=== PATIENT | female | born 1940 | race Caucasian/White ===

== ENCOUNTER 2016-07-08 18:29 | Inpatient (IN) | payer OTHER, MEDICAID ==
[~2016-07-08] VITALS: Ht 165.1 cm; Wt 88.0 kg
[2016-07-08 18:29] VITALS: BP 93/41; PULSE 87; RESP 18; TEMP 99.6; O2SAT 97
[~2016-07-08 18:29] MED LIST: ALBU2.5V7 INH; ALEN70TA3 GT; AMI200 GT; ATII2 IM; BIMA2.5D5 OP; CALC-939 GT; COLL100 GT; DULR10 RC; IPRA0.2S6 INH; IPRA3AMP9 INH; LACTIN GT; LEVE500T13 GT; LEVO25TA7 GT; MAGN400O4 GT; METO25TA6 GT; NA P118E RC; OMEP-130 GT; PATANOL OP; PRO40 GT; PROSTAT GT; TIMO5DRO4 OP; TYLL650 GT
[2016-07-08] MEDS ORDERED: NS 1000 ML BAG IV ONE (18:45)
[2016-07-08 19:09] LABS: BASOPHILS # (AUTO) 0.1 K/uL (0.0-0.2); BASOPHILS % (AUTO) 0.8 % (0.0-2.0); EOSINOPHILS # (AUTO) 0.9 K/uL (0.0-0.4); HEMATOCRIT 25.6 % (36-48); HEMOGLOBIN 8.4 g/dL (12.0-16.0); LYMPHOCYTES # (AUTO) 1.1 K/uL (1.0-5.5); LYMPHOCYTES % (AUTO) 10.3 % (20.5-51.5); MEAN CORPUSCULAR HEMOGLOBIN 28 pg (27-31); MEAN CORPUSCULAR HGB CONC 33 % (32-36); MEAN CORPUSCULAR VOLUME 85 fL (79.0-98.0); MONOCYTES # (AUTO) 0.6 K/uL (0.0-1.0); MONOCYTES % (AUTO) 6.1 % (1.7-9.3); NEUTROPHILS # (AUTO) 7.8 K/uL (1.8-7.7); NEUTROPHILS % (AUTO) 73.8 % (40.0-70.0); PLATELET COUNT (AUTO) 173 K/uL (130-430); RED BLOOD CELL COUNT(AUTO) 3.02 MIL/uL (4.2-6.2); RED CELL DISTRIBUTION WIDTH 18.6 % (9.0-15.0); WHITE BLOOD COUNT (AUTO) 10.5 K/uL (4.8-10.8)
[2016-07-08 19:21] LABS: BILIRUBIN,URINE NEGATIVE (NEGATIVE); BLOOD, URINE NEGATIVE (NEGATIVE); CLARITY/URINE HAZY (CLEAR); COLOR,URINE YELLOW (YELLOW); GLUCOSE,URINE NEGATIVE (NEGATIVE); KETONES,URINE NEGATIVE (NEGATIVE); LEUKOCYTE ESTERASE ,URINE NEGATIVE (NEGATIVE); NITRITE, URINE NEGATIVE (NEGATIVE); PROTEIN URINE NEGATIVE (NEGATIVE); UROBILINOGEN,URINE 0.2 (0.2-1.0)
[2016-07-08] MEDS ORDERED: IPRA3AMP9 INH (19:38)
[2016-07-08] MEDS ORDERED: FENT1PAT4 TD (19:38)
[2016-07-08] MEDS ORDERED: METO25TA3 GT (19:38)
[2016-07-08 19:40] LABS: ANION GAP 8 (5-15); CALCIUM 9.5 mg/dL (8.4-11.0); CHLORIDE 97 mmol/L (98-107); CREATININE 0.89 mg/dL (0.55-1.30); GLUCOSE 191 mg/dL (70-99); POTASSIUM 5.2 mmol/L (3.5-5.1); SODIUM SERUM 132 mmol/L (136-145); UREA NITROGEN, BLOOD 37 mg/dL (8-21)
[2016-07-08 19:45] LABS: ALANINE AMINOTRANSFERASE 44 U/L (12-78); ALBUMIN 2.6 g/dL (3.4-4.8); ASPARTATE AMINOTRANSFERASE 51 U/L (10-37); TOTAL BILIRUBIN 0.8 mg/dL (0.0-1.0); TOTAL PROTEIN, SERUM 7.4 g/dL (6.4-8.3)
[2016-07-08 19:49] LABS: BACTERIA,URINE FEW /HPF (None Seen); MUCUS,URINE 1+ /LPF (None Seen); RBC,URINE NONE SEEN /HPF (0-3); WBC,URINE 0-3 /HPF (0-3)
[2016-07-08] MEDS ORDERED: VANCOMYCIN HCL 500 MG in NS 100 ML IV ONE (20:45)
[2016-07-08] MEDS ORDERED: PIPERACILLIN/TAZO 3.375 GM in NS 50 ML IV ONE (20:45)
[2016-07-08] MEDS ORDERED: PIPERACILLIN/TAZOBACTAM 3.375 GM/VIAL (ZOSYN) IV ONE (20:53)
[2016-07-08] MEDS ORDERED: VANCOMYCIN HCL 1000 MG/VIAL IV ONE (20:53)
[2016-07-08 21:35] VITALS: BP 93/56; PULSE 84; RESP 18; TEMP 98.9; O2SAT 98
[2016-07-08 22:00] VITALS: BP 93/50; PULSE 84; RESP 18; O2SAT 98
[2016-07-08] MEDS ORDERED: ACETAMINOPHEN 650 MG/20.3 ML UDC GT PRN (22:00)
[2016-07-08] MEDS ORDERED: MILK OF MAGNESIA 30 ML UDC PO PRN (22:00)
[2016-07-08] MEDS ORDERED: IPRATROPIUM/ALBUTEROL SULFATE 3 ML AMPUL.NEB INH PRN ×2 (22:00)
[2016-07-08] MEDS ORDERED: ALENDRONATE SODIUM 70 MG TABLET (FOSAMAX) GT SCH ×2 (22:00)
[2016-07-08] MEDS ORDERED: IPRATROPIUM BROM 0.5 MG/2.5 ML VIAL.NEB (ATROVENT) INH PRN (22:00)
[2016-07-08] MEDS ORDERED: BISACODYL 10 MG/SUPPOSITORY RC PRN (22:00)
[2016-07-08] MEDS ORDERED: MILK OF MAGNESIA 30 ML UDC GT PRN (22:00)
[2016-07-08] MEDS ORDERED: LORazepam 2 MG/ML VIAL IM PRN (22:00)
[2016-07-08] MEDS ORDERED: NA PHOS,M-B/NA PHOS,DI-BA 118 ML (FLEET ENEMA) RC PRN (22:00)
[2016-07-08 22:15] LABS: BLOOD GAS PH 7.428 (7.350-7.450)
[2016-07-08] MEDS ORDERED: LevALBUTEROL HCL 1.25 MG/0.5 ML *CONC.* VIAL.NEB (XOPENEX CONC.) INH PRN (22:15)
[2016-07-08] MEDS ORDERED: LORazepam 2 MG/ML VIAL IVP PRN (22:15)
[2016-07-08 22:16] LABS: ABG TOTAL HEMOGLOBIN 9.1 G/dL (12.0-18.0); BLOOD GAS BASE EXCESS -0.1 mmol/L (-3.0-3.0); BLOOD GAS COHb% 0.2 % (0.5-1.5); BLOOD GAS HHB 1.1 % (0.0-6.0); BLOOD O2Hb% 98.1 % (94.0-97.0)
[2016-07-08 22:41] LABS: INR 1.2 (0.8-1.2); PROTHROMBIN TIME 12.5 SECS (9.5-12.5)
[2016-07-08 23:00] VITALS: BP 90/52; PULSE 80; RESP 16; O2SAT 100
[2016-07-08] MEDS: D5/0.45 NS 1,000 ML IV SCH (23:36)
[2016-07-08 23:40] VITALS: BP_SYST 106; BP_SYST 91; BP_DIAS 38; BP_DIAS 55; PULSE 78
[2016-07-09] VITALS (34 sets, daily range): BP systolic 92–158; BP diastolic 40–79; PULSE 78–115; RESP 16–36; TEMP 97.9–99.2; O2SAT 94–99; Ht 165.1 cm; Wt 88.0 kg
[2016-07-09] MEDS ORDERED: IPRATROPIUM BROM 0.5 MG/2.5 ML VIAL.NEB (ATROVENT) INH SCH (01:00)
[2016-07-09] MEDS ORDERED: ALBUTEROL SULFATE 0.083% 2.5 MG/3 ML VIAL.NEB INH ONE (02:14)
[2016-07-09] MEDS ORDERED: IPRATROPIUM BROM 0.5 MG/2.5 ML VIAL.NEB (ATROVENT) INH ONE (02:14)
[2016-07-09] MEDS ORDERED: PIPERACILLIN/TAZOBACTAM 3.375 GM/VIAL (ZOSYN) IV ONE (04:45)
[2016-07-09] MEDS: PIPERACILLIN/TAZO 3.375/DEX-IS 50 ML IV SCH ×4 (04:47→21:40)
[2016-07-09 06:51] LABS: ALANINE AMINOTRANSFERASE 45 U/L (12-78); ALBUMIN 2.3 g/dL (3.4-4.8); ANION GAP 11 (5-15); ASPARTATE AMINOTRANSFERASE 86 U/L (10-37); CALCIUM 9.1 mg/dL (8.4-11.0); CHLORIDE 100 mmol/L (98-107); CREATININE 0.84 mg/dL (0.55-1.30); GLUCOSE 139 mg/dL (70-99); POTASSIUM 5.2 mmol/L (3.5-5.1); SODIUM SERUM 135 mmol/L (136-145); TOTAL BILIRUBIN 0.8 mg/dL (0.0-1.0); TOTAL PROTEIN, SERUM 6.9 g/dL (6.4-8.3); UREA NITROGEN, BLOOD 36 mg/dL (8-21)
[2016-07-09] MEDS: LEVOTHYROXINE SODIUM 0.025 MG TABLET GT SCH (08:06)
[2016-07-09] MEDS: DOCUSATE SODIUM 100 MG/10 ML UDC GT SCH (08:06)
[2016-07-09] MEDS: levETIRAcetam 500 MG TABLET GT SCH ×2 (08:07→21:36)
[2016-07-09] MEDS: PANTOPRAZOLE GRANULES PACKET 40 MG GT SCH (08:07)
[2016-07-09] MEDS: AMIODARONE HCL 200 MG TABLET GT SCH (08:08)
[2016-07-09] MEDS: TIMOLOL MALEATE 0.5% OPHTHALMIC DROPS 5 ML OP SCH ×2 (08:12→21:42)
[2016-07-09] MEDS: CALCIUM CARBONATE/VITAMIN D3 1 TAB TABLET GT SCH (08:12)
[2016-07-09] MEDS ORDERED: METOPROLOL TARTRATE 25 MG TABLET GT SCH (09:00)
[2016-07-09] MEDS ORDERED: fentaNYL 25 MCG/HR PATCH TD SCH (09:00)
[2016-07-09] MEDS: VANCOMYCIN HCL 1,000 MG in NS 250 ML IV SCH ×2 (10:46→21:41)
[2016-07-09] MEDS: METOPROLOL TARTRATE 25 MG TABLET PO SCH ×2 (14:48→21:37)
[2016-07-09 14:50] LABS: BASOPHILS # (AUTO) 0.1 K/uL (0.0-0.2); BASOPHILS % (AUTO) 0.5 % (0.0-2.0); EOSINOPHILS # (AUTO) 0.8 K/uL (0.0-0.4); EOSINOPHILS % (AUTO) 7.8 % (0.0-4.0); HEMATOCRIT 24.8 % (36-48); LYMPHOCYTES # (AUTO) 1.2 K/uL (1.0-5.5); LYMPHOCYTES % (AUTO) 11.8 % (20.5-51.5); MEAN CORPUSCULAR HEMOGLOBIN 28 pg (27-31); MEAN CORPUSCULAR HGB CONC 33 % (32-36); MEAN CORPUSCULAR VOLUME 86 fL (79.0-98.0); MONOCYTES # (AUTO) 0.8 K/uL (0.0-1.0); MONOCYTES % (AUTO) 8.1 % (1.7-9.3); NEUTROPHILS # (AUTO) 7.1 K/uL (1.8-7.7); NEUTROPHILS % (AUTO) 71.8 % (40.0-70.0); PLATELET COUNT (AUTO) 166 K/uL (130-430); RED BLOOD CELL COUNT(AUTO) 2.88 MIL/uL (4.2-6.2)
[2016-07-09] MEDS: D5/0.45 NS 1,000 ML IV SCH (14:55)
[2016-07-09] MEDS: LACTOBACILLUS RHAMNOSUS GG 1 CAP CAPSULE PO SCH (21:38)
[2016-07-09] MEDS: LATANOPROST 2.5 ML DROPS (XALATAN) OP SCH (21:38)
[2016-07-10] VITALS (35 sets, daily range): BP systolic 104–156; BP diastolic 34–62; PULSE 83–124; RESP 16–26; TEMP 97.1–98.9; O2SAT 94–98
[2016-07-10] MEDS: LevALBUTEROL HCL 1.25 MG/0.5 ML *CONC.* VIAL.NEB (XOPENEX CONC.) INH SCH ×4 (00:16→21:45)
[2016-07-10] MEDS: PIPERACILLIN/TAZO 3.375/DEX-IS 50 ML IV SCH ×4 (05:00→20:04)
[2016-07-10] MEDS: METOPROLOL TARTRATE 25 MG TABLET PO SCH ×2 (06:33→14:22)
[2016-07-10 07:10] LABS: ANION GAP 13 (5-15); CALCIUM 8.6 mg/dL (8.4-11.0); CHLORIDE 99 mmol/L (98-107); CREATININE 0.97 mg/dL (0.55-1.30); GLUCOSE 166 mg/dL (70-99); POTASSIUM 4.5 mmol/L (3.5-5.1); SODIUM SERUM 133 mmol/L (136-145); UREA NITROGEN, BLOOD 40 mg/dL (8-21)
[2016-07-10 07:17] LABS: BASOPHILS % (AUTO) 0.2 % (0.0-2.0); EOSINOPHILS # (AUTO) 0.4 K/uL (0.0-0.4); EOSINOPHILS % (AUTO) 4.4 % (0.0-4.0); HEMATOCRIT 23.8 % (36-48); HEMOGLOBIN 7.7 g/dL (12.0-16.0); LYMPHOCYTES # (AUTO) 1.5 K/uL (1.0-5.5); LYMPHOCYTES % (AUTO) 15.6 % (20.5-51.5); MEAN CORPUSCULAR HEMOGLOBIN 27 pg (27-31); MEAN CORPUSCULAR HGB CONC 32 % (32-36); MEAN CORPUSCULAR VOLUME 85 fL (79.0-98.0); MONOCYTES # (AUTO) 1.1 K/uL (0.0-1.0); NEUTROPHILS # (AUTO) 6.6 K/uL (1.8-7.7); NEUTROPHILS % (AUTO) 68.8 % (40.0-70.0); PLATELET COUNT (AUTO) 124 K/uL (130-430); RED BLOOD CELL COUNT(AUTO) 2.81 MIL/uL (4.2-6.2); RED CELL DISTRIBUTION WIDTH 18.4 % (9.0-15.0); WHITE BLOOD COUNT (AUTO) 9.6 K/uL (4.8-10.8)
[2016-07-10] MEDS: D5/0.45 NS 1,000 ML IV SCH ×3 (07:35→20:02)
[2016-07-10] MEDS: DOCUSATE SODIUM 100 MG/10 ML UDC GT SCH (09:00)
[2016-07-10] MEDS: VANCOMYCIN HCL 1,000 MG in NS 250 ML IV SCH (09:08)
[2016-07-10] MEDS: LACTOBACILLUS RHAMNOSUS GG 1 CAP CAPSULE PO SCH ×2 (09:09→20:04)
[2016-07-10] MEDS: PANTOPRAZOLE GRANULES PACKET 40 MG GT SCH (09:09)
[2016-07-10] MEDS: AMIODARONE HCL 200 MG TABLET GT SCH (09:09)
[2016-07-10] MEDS: levETIRAcetam 500 MG TABLET GT SCH ×2 (09:09→20:04)
[2016-07-10] MEDS: TIMOLOL MALEATE 0.5% OPHTHALMIC DROPS 5 ML OP SCH ×2 (09:10→20:06)
[2016-07-10] MEDS: LEVOTHYROXINE SODIUM 0.025 MG TABLET GT SCH (09:10)
[2016-07-10] MEDS: CALCIUM CARBONATE/VITAMIN D3 1 TAB TABLET GT SCH (09:12)
[2016-07-10] MEDS ORDERED: COMMUNICATION ORDER XX ONE (15:45)
[2016-07-10] MEDS ORDERED: HYDROmorphone 1 MG INJ. 1 MG/ML AMPUL IVP PRN (18:00)
[2016-07-10] MEDS ORDERED: HYDROmorphone 1 MG INJ. 1 MG/ML AMPUL ONE (18:20)
[2016-07-10] MEDS: LATANOPROST 2.5 ML DROPS (XALATAN) OP SCH (20:05)
[2016-07-10] MEDS: METOPROLOL TARTRATE 25 MG TABLET GT SCH (21:38)
[2016-07-11] VITALS (29 sets, daily range): BP systolic 90–138; BP diastolic 32–71; PULSE 78–145; RESP 15–25; TEMP 97.5–99.2; O2SAT 92–98
[2016-07-11] MEDS: LevALBUTEROL HCL 1.25 MG/0.5 ML *CONC.* VIAL.NEB (XOPENEX CONC.) INH SCH ×4 (02:58→20:01)
[2016-07-11] MEDS: PIPERACILLIN/TAZO 3.375/DEX-IS 50 ML IV SCH ×4 (03:15→21:58)
[2016-07-11] MEDS: METOPROLOL TARTRATE 25 MG TABLET GT SCH ×3 (05:44→22:00)
[2016-07-11] MEDS: D5/0.45 NS 1,000 ML IV SCH ×2 (05:45→20:54)
[2016-07-11 07:11] LABS: BASOPHILS % (AUTO) 0.1 % (0.0-2.0); EOSINOPHILS # (AUTO) 0.3 K/uL (0.0-0.4); EOSINOPHILS % (AUTO) 2.2 % (0.0-4.0); HEMATOCRIT 30.8 % (36-48); HEMOGLOBIN 10.2 g/dL (12.0-16.0); LYMPHOCYTES # (AUTO) 1.7 K/uL (1.0-5.5); LYMPHOCYTES % (AUTO) 13.1 % (20.5-51.5); MEAN CORPUSCULAR HEMOGLOBIN 28 pg (27-31); MEAN CORPUSCULAR HGB CONC 33 % (32-36); MEAN CORPUSCULAR VOLUME 84 fL (79.0-98.0); MONOCYTES # (AUTO) 1.4 K/uL (0.0-1.0); MONOCYTES % (AUTO) 10.7 % (1.7-9.3); NEUTROPHILS # (AUTO) 9.8 K/uL (1.8-7.7); NEUTROPHILS % (AUTO) 73.9 % (40.0-70.0); PLATELET COUNT (AUTO) 124 K/uL (130-430); RED BLOOD CELL COUNT(AUTO) 3.67 MIL/uL (4.2-6.2); RED CELL DISTRIBUTION WIDTH 17.8 % (9.0-15.0); WHITE BLOOD COUNT (AUTO) 13.2 K/uL (4.8-10.8)
[2016-07-11 07:22] LABS: ANION GAP 12 (5-15); CALCIUM 8.2 mg/dL (8.4-11.0); CHLORIDE 98 mmol/L (98-107); CREATININE 0.85 mg/dL (0.55-1.30); GLUCOSE 220 mg/dL (70-99); POTASSIUM 3.9 mmol/L (3.5-5.1); SODIUM SERUM 131 mmol/L (136-145); UREA NITROGEN, BLOOD 38 mg/dL (8-21)
[2016-07-11] MEDS: LACTOBACILLUS RHAMNOSUS GG 1 CAP CAPSULE PO SCH ×2 (09:19→21:58)
[2016-07-11] MEDS: levETIRAcetam 500 MG TABLET GT SCH ×2 (09:20→21:58)
[2016-07-11] MEDS: AMIODARONE HCL 200 MG TABLET GT SCH (09:21)
[2016-07-11] MEDS: LEVOTHYROXINE SODIUM 0.025 MG TABLET GT SCH (09:21)
[2016-07-11] MEDS: PANTOPRAZOLE GRANULES PACKET 40 MG GT SCH (09:21)
[2016-07-11] MEDS: DOCUSATE SODIUM 100 MG/10 ML UDC GT SCH (09:23)
[2016-07-11] MEDS: VANCOMYCIN HCL 1,000 MG in NS 250 ML IV SCH ×5 (09:23→22:00)
[2016-07-11] MEDS: CALCIUM CARBONATE/VITAMIN D3 1 TAB TABLET GT SCH (09:26)
[2016-07-11] MEDS: TIMOLOL MALEATE 0.5% OPHTHALMIC DROPS 5 ML OP SCH ×2 (09:30→22:01)
[2016-07-11] MEDS ORDERED: ONDANSETRON HCL 4 MG/2 ML VIAL IVP PRN (11:15)
[2016-07-11] MEDS ORDERED: FUROSEMIDE 20 MG/2 ML VIAL IVP ONE (11:45)
[2016-07-11] MEDS ORDERED: MORPHINE 2 MG/ML INJ. SYRINGE IVP PRN (12:15)
[2016-07-11] MEDS ORDERED: LORazepam 2 MG/ML VIAL IVP PRN (12:15)
[2016-07-11] MEDS ORDERED: SODIUM BICARBONATE 8.4% VIAL 50 MEQ/50 ML VIAL INJ ONE (12:15)
[2016-07-11] MEDS: NACL 0.9% 1,000 ML IV SCH ×2 (12:26→21:59)
[2016-07-11 13:00] LABS: BLOOD GAS PH 7.414 (7.350-7.450)
[2016-07-11 13:02] LABS: ABG TOTAL HEMOGLOBIN 12.2 G/dL (12.0-18.0); BLOOD GAS BASE EXCESS -7.7 mmol/L (-3.0-3.0); BLOOD GAS COHb% 0.4 % (0.5-1.5); BLOOD GAS HHB 5.3 % (0.0-6.0); BLOOD O2Hb% 93.9 % (94.0-97.0)
[2016-07-11] MEDS ORDERED: DILTIAZEM HCL 25 MG/5 ML VIAL IVP ONE (15:00)
[2016-07-11] MEDS ORDERED: DILTIAZEM HCL 125 MG in D5W 100 ML IV SCH (20:00)
[2016-07-11] MEDS: LATANOPROST 2.5 ML DROPS (XALATAN) OP SCH (22:00)
[2016-07-12] VITALS (35 sets, daily range): BP systolic 90–134; BP diastolic 36–72; PULSE 74–123; RESP 16–22; TEMP 97–98.9; O2SAT 93–97
[2016-07-12] MEDS ORDERED: NS 250 ML IV ONE (00:15)
[2016-07-12] MEDS: LevALBUTEROL HCL 1.25 MG/0.5 ML *CONC.* VIAL.NEB (XOPENEX CONC.) INH SCH ×4 (01:21→19:52)
[2016-07-12] MEDS: D5/0.45 NS 1,000 ML IV SCH ×3 (02:00→22:00)
[2016-07-12] MEDS: PIPERACILLIN/TAZO 3.375/DEX-IS 50 ML IV SCH ×4 (02:47→20:44)
[2016-07-12] MEDS: NACL 0.9% 1,000 ML IV SCH ×2 (06:40→20:45)
[2016-07-12] MEDS: METOPROLOL TARTRATE 25 MG TABLET GT SCH ×3 (06:41→23:02)
[2016-07-12 06:55] LABS: HEMATOCRIT 33.6 % (36-48); HEMOGLOBIN 11.1 g/dL (12.0-16.0); MEAN CORPUSCULAR HEMOGLOBIN 28 pg (27-31); MEAN CORPUSCULAR HGB CONC 33 % (32-36); MEAN CORPUSCULAR VOLUME 85 fL (79.0-98.0); PLATELET COUNT (AUTO) 107 K/uL (130-430); RED BLOOD CELL COUNT(AUTO) 3.97 MIL/uL (4.2-6.2); RED CELL DISTRIBUTION WIDTH 18.5 % (9.0-15.0); WHITE BLOOD COUNT (AUTO) 14.1 K/uL (4.8-10.8)
[2016-07-12 07:04] LABS: ALANINE AMINOTRANSFERASE 44 U/L (12-78); ALBUMIN 1.7 g/dL (3.4-4.8); ANION GAP 11 (5-15); ASPARTATE AMINOTRANSFERASE 240 U/L (10-37); CALCIUM 7.6 mg/dL (8.4-11.0); CHLORIDE 103 mmol/L (98-107); CREATININE 0.78 mg/dL (0.55-1.30); GLUCOSE 172 mg/dL (70-99); POTASSIUM 3.7 mmol/L (3.5-5.1); SODIUM SERUM 136 mmol/L (136-145); TOTAL BILIRUBIN 0.9 mg/dL (0.0-1.0); TOTAL PROTEIN, SERUM 5.8 g/dL (6.4-8.3); UREA NITROGEN, BLOOD 43 mg/dL (8-21)
[2016-07-12] MEDS ORDERED: fentaNYL 50 MCG/HR PATCH TD SCH (09:00)
[2016-07-12] MEDS: TIMOLOL MALEATE 0.5% OPHTHALMIC DROPS 5 ML OP SCH ×2 (09:20→20:45)
[2016-07-12] MEDS: DOCUSATE SODIUM 100 MG/10 ML UDC GT SCH (09:20)
[2016-07-12] MEDS: CALCIUM CARBONATE/VITAMIN D3 1 TAB TABLET GT SCH (09:20)
[2016-07-12] MEDS: AMIODARONE HCL 200 MG TABLET GT SCH (09:21)
[2016-07-12] MEDS: LACTOBACILLUS RHAMNOSUS GG 1 CAP CAPSULE PO SCH ×2 (09:21→20:45)
[2016-07-12] MEDS: LEVOTHYROXINE SODIUM 0.025 MG TABLET GT SCH (09:21)
[2016-07-12] MEDS: PANTOPRAZOLE GRANULES PACKET 40 MG GT SCH (09:21)
[2016-07-12] MEDS: levETIRAcetam 500 MG TABLET GT SCH ×2 (09:22→20:45)
[2016-07-12] MEDS: VANCOMYCIN HCL 1,250 MG in NS 250 ML IV SCH (10:18)
[2016-07-12 11:22] LABS: ABG TOTAL HEMOGLOBIN 12.6 G/dL (12.0-18.0); BLOOD GAS BASE EXCESS -3.8 mmol/L (-3.0-3.0); BLOOD GAS PH 7.396 (7.350-7.450); BLOOD O2Hb% 96.7 % (94.0-97.0)
[2016-07-12 11:23] LABS: BLOOD GAS COHb% 0.3 % (0.5-1.5); BLOOD GAS HHB 2.4 % (0.0-6.0)
[2016-07-12 11:46] LABS: ATYPICAL LYMPHOCYTES % 5 % (0-0); BAND % (MANUAL) 16 % (0-6); BASOPHILS % (MANUAL) 0 % (0-2); EOSINOPHILS % (MANUAL) 1 % (0-7); LYMPHOCYTES % (MANUAL) 7 % (20-46); MONOCYTES % (MANUAL) 10 % (0-11)
[2016-07-12 11:47] LABS: METAMYELOCYTES % 1 % (0-0)
[2016-07-12] MEDS ORDERED: FUROSEMIDE 20 MG/2 ML VIAL IVP ONE (13:15)
[2016-07-12] MEDS: LATANOPROST 2.5 ML DROPS (XALATAN) OP SCH (20:46)
[2016-07-13] VITALS (24 sets, daily range): BP systolic 0–173; BP diastolic 0–92; PULSE 0–138; RESP 0–24; TEMP 97–100.5; O2SAT 0–98
[2016-07-13] MEDS: LevALBUTEROL HCL 1.25 MG/0.5 ML *CONC.* VIAL.NEB (XOPENEX CONC.) INH SCH ×3 (01:10→13:31)
[2016-07-13] MEDS: PIPERACILLIN/TAZO 3.375/DEX-IS 50 ML IV SCH (02:19)
[2016-07-13] MEDS: METOPROLOL TARTRATE 25 MG TABLET GT SCH ×2 (06:00→14:16)
[2016-07-13] MEDS: NACL 0.9% 1,000 ML IV SCH ×2 (06:01→11:24)
[2016-07-13 06:49] LABS: ANION GAP 12 (5-15); CHLORIDE 104 mmol/L (98-107); CREATININE 1.15 mg/dL (0.55-1.30); GLUCOSE 180 mg/dL (70-99); POTASSIUM 3.6 mmol/L (3.5-5.1); SODIUM SERUM 136 mmol/L (136-145); UREA NITROGEN, BLOOD 50 mg/dL (8-21)
[2016-07-13 06:50] LABS: BASOPHILS % (AUTO) 0.1 % (0.0-2.0); EOSINOPHILS # (AUTO) 0.5 K/uL (0.0-0.4); EOSINOPHILS % (AUTO) 3.5 % (0.0-4.0); HEMATOCRIT 34.2 % (36-48); LYMPHOCYTES # (AUTO) 1.7 K/uL (1.0-5.5); LYMPHOCYTES % (AUTO) 13.4 % (20.5-51.5); MEAN CORPUSCULAR HEMOGLOBIN 28 pg (27-31); MEAN CORPUSCULAR HGB CONC 32 % (32-36); MEAN CORPUSCULAR VOLUME 86 fL (79.0-98.0); MONOCYTES # (AUTO) 1.4 K/uL (0.0-1.0); MONOCYTES % (AUTO) 10.4 % (1.7-9.3); NEUTROPHILS # (AUTO) 9.4 K/uL (1.8-7.7); NEUTROPHILS % (AUTO) 72.6 % (40.0-70.0); PLATELET COUNT (AUTO) 102 K/uL (130-430); RED BLOOD CELL COUNT(AUTO) 3.99 MIL/uL (4.2-6.2); RED CELL DISTRIBUTION WIDTH 18.9 % (9.0-15.0)
[2016-07-13] MEDS: D5/0.45 NS 1,000 ML IV SCH (08:00)
[2016-07-13] MEDS ORDERED: CEFTAZIDIME 1 GM in D5W 50 ML IV SCH (09:00)
[2016-07-13] MEDS: AMIODARONE HCL 200 MG TABLET GT SCH (09:01)
[2016-07-13] MEDS: DOCUSATE SODIUM 100 MG/10 ML UDC GT SCH (09:01)
[2016-07-13] MEDS: levETIRAcetam 500 MG TABLET GT SCH (09:01)
[2016-07-13] MEDS: PANTOPRAZOLE GRANULES PACKET 40 MG GT SCH (09:02)
[2016-07-13] MEDS: CALCIUM CARBONATE/VITAMIN D3 1 TAB TABLET GT SCH (09:02)
[2016-07-13] MEDS: LEVOTHYROXINE SODIUM 0.025 MG TABLET GT SCH (09:02)
[2016-07-13] MEDS: TIMOLOL MALEATE 0.5% OPHTHALMIC DROPS 5 ML OP SCH (09:03)
[2016-07-13] MEDS: VANCOMYCIN HCL 1,250 MG in NS 250 ML IV SCH (11:18)
[2016-07-13] MEDS: LACTOBACILLUS RHAMNOSUS GG 1 CAP CAPSULE PO SCH (11:23)
[2016-07-13] MEDS ORDERED: MORPHINE I.V. DRIP 100 ML IV PRN (13:15)
[2016-07-13] MEDS ORDERED: MORPHINE PCA 50 mg/50 mL NS IV PRN (13:30)
[2016-07-13] MEDS ORDERED: MORPHINE PCA 50 mg/50 mL NS 50 ML IV PRN (14:30)
[2016-07-13] MEDS: MORPHINE 4 MG/ML INJ. SYRINGE IVP PRN ×2 (15:45→16:05)
[2016-07-13] MEDS ORDERED: ALENDRONATE SODIUM 70 MG TABLET (FOSAMAX) GT SCH (16:30)
== END 2016-07-13 16:15 | disposition expired | DRG 870 ==
LOC: SED 18:29 → SIC 20:58 → UNDODISIN 07-13 16:15
PROVIDERS: ADMIT Family Medicine; ATTEND Family Medicine
PROC: 5A1955Z Respiratory Ventilation, Greater than 96 Consecutive Hours (ICD-10-PCS; principal; 2016-07-08)
PROC: 02HV33Z Insertion of Infusion Device into Superior Vena Cava, Percutaneous Approach (ICD-10-PCS; 2016-07-09)
PROC: 30233N1 Transfusion of Nonautologous Red Blood Cells into Peripheral Vein, Percutaneous Approach (ICD-10-PCS; 2016-07-13)
DX: A41.9 Sepsis, unspecified organism (principal); J15.1 Pneumonia due to Pseudomonas; E43 Unspecified severe protein-calorie malnutrition; R65.21 Severe sepsis with septic shock; J96.10 Chronic respiratory failure, unspecified whether with hypoxia or hypercapnia; E87.1 Hypo-osmolality and hyponatremia; M84.421A Pathological fracture, right humerus, initial encounter for fracture; C34.90 Malignant neoplasm of unspecified part of unspecified bronchus or lung; I48.2 Chronic atrial fibrillation; I10 Essential (primary) hypertension; Z16.24 Resistance to multiple antibiotics; E03.9 Hypothyroidism, unspecified; D64.9 Anemia, unspecified; Z86.73 Personal history of transient ischemic attack (TIA), and cerebral infarction without residual deficits; Z93.0 Tracheostomy status; Z93.1 Gastrostomy status; Z68.32 Body mass index [BMI] 32.0-32.9, adult; I46.9 Cardiac arrest, cause unspecified
CPT/HCPCS: 36415; 36600; 71010; 73060-TC; 74000-TC; 80048; 80053; 80202-TC; 81000-TC; 81003; 82803-TC; 82962; 83605; 84484; 85007; 85025; 85027; 85610-TC; 85730-TC; 86886; 86900; 86901; 86920; 87040-TC; 87070-TC; 87081; 87086; 87186-TC; 87205-TC; 87230-TC; 93005; 94002; 94003; 94640; 96365; 96367; 99285; C1751; J0713; J1170; J1940; J2270; J2405; J2543; J3370; J3490; J7030; J7040; J7050; J7060; P9021